=== PATIENT | male | born 1940 | race Caucasian/White ===

== ENCOUNTER 2017-02-28 23:22 | Emergency (ER) | payer MEDICARE, MEDICAID ==
[~2017-02-28] VITALS: Ht 167.6 cm; Wt 63.5 kg
[2017-02-28] MEDS ORDERED: LISI-603 PO (23:39)
[2017-02-28] MEDS ORDERED: CARI350T PO (23:39)
[2017-02-28] MEDS ORDERED: INHALER (23:39)
[2017-02-28] MEDS ORDERED: HYDR-548 PO (23:39)
[2017-02-28] MEDS ORDERED: OMEP40CA37 PO (23:39)
[2017-02-28] MEDS ORDERED: AZITHROMYCIN 250 MG TABLET PO ONE (23:45)
[2017-02-28] MEDS ORDERED: CEFTRIAXONE 500 MG VIAL IM ONE (23:45)
--- NOTE | 2017-02-28 23:59 | NUR ---
Patient discharged to home in stable conditon. Written and verbal after care instructions given. Patient verbalizes understanding of instructions.
[2017-03-01] MEDS ORDERED: AZITHROMYCIN 250 MG TABLET ONE (00:04)
[2017-03-01] MEDS ORDERED: LIDOCAINE HCL 1% 20 ML VIAL ONE (00:04)
[2017-03-01] MEDS ORDERED: CEFTRIAXONE 500 MG VIAL ONE (00:04)
== END 2017-03-01 | disposition home or self-care (01) ==
LOC: ER 23:26
DX: A64 Unspecified sexually transmitted disease (principal); I10 Essential (primary) hypertension; J44.9 Chronic obstructive pulmonary disease, unspecified; K21.9 Gastro-esophageal reflux disease without esophagitis
CPT/HCPCS: 96372; 99283; A4663; J0696; J3490; Q0144

== ENCOUNTER 2017-05-15 20:53 | Inpatient (IN) | payer MEDICARE, MEDICAID ==
[~2017-05-15] VITALS: Ht 177.8 cm; Wt 63.5 kg
[~2017-05-15 20:53] MED LIST: CARI350T PO; HYDR-548 PO; INHALER; LISI-603 PO; OMEP40CA37 PO
--- NOTE | 2017-05-15 21:58 | NUR ---
pt c/o eye pain and discharge x5 days
--- NOTE | 2017-05-15 22:05 | NUR ---
at bedside for MSE.
[2017-05-15] MEDS ORDERED: GUAIFENESIN/CODEINE 5 ML LIQUID UDC PO ONE (22:15)
[2017-05-15] MEDS ORDERED: CIPROFLOXACIN 0.3% OPHT DROP 2.5 ML BOTTLE OP ONE (22:15)
[2017-05-15] MEDS ORDERED: BENZONATATE 100 MG CAPSULE PO ONE (22:15)
[2017-05-15] MEDS ORDERED: ALBUTEROL SULFATE 2.5 MG/3 ML NEBU NEB ONE (22:15)
[2017-05-15] MEDS ORDERED: ALBUTEROL SULFATE 2.5 MG/3 ML NEBU ONE (22:44)
[2017-05-15] MEDS ORDERED: GUAIFENESIN/CODEINE 5 ML LIQUID UDC ONE (22:52)
[2017-05-15] MEDS ORDERED: CIPROFLOXACIN 0.3% OPHT DROP 2.5 ML BOTTLE ONE (22:52)
[2017-05-15] MEDS ORDERED: BENZONATATE 100 MG CAPSULE ONE (22:52)
[2017-05-15 23:15] LABS: BASOPHILS % (AUTO) 0.2 % (0.0-2.0); CARBON DIOXIDE 27 mmol/L (21-32); CHLORIDE 105 mmol/L (98-107); CREATININE 1.1 mg/dL (0.6-1.3); EOSINOPHILS # (AUTO) 0.1 K/uL (0.0-0.7); EOSINOPHILS % (AUTO) 1.8 % (0.0-7.0); GLUCOSE 122 mg/dL (74-106); HEMOGLOBIN 11.8 g/dL (12.5-16.3); LYMPHOCYTES # (AUTO) 1.3 K/uL (20.0-40.0); LYMPHOCYTES % (AUTO) 21.5 % (20.5-51.5); MEAN CORPUSCULAR HEMOGLOBIN 30.4 uug (23.8-33.4); MEAN CORPUSCULAR HGB CONC 34 g/dL (32.5-36.3); MEAN CORPUSCULAR VOLUME 90.2 fL (73.0-96.2); MONOCYTES # (AUTO) 0.5 K/uL (2.0-10.0); MONOCYTES % (AUTO) 7.9 % (0.0-11.0); NEUTROPHILS % (AUTO) 68.6 % (38.5-71.5); PLATELET COUNT (AUTO) 202 K/uL (152-348); POTASSIUM 3.7 mmol/L (3.5-5.1); RED BLOOD CELL COUNT(AUTO) 3.88 MIL/uL (4.06-5.63); UREA NITROGEN, BLOOD 18 mg/dL (7-18); WHITE BLOOD COUNT (AUTO) 5.9 K/uL (3.6-10.2)
[2017-05-15 23:31] LABS: ALANINE AMINOTRANSFERASE 46 U/L (16-63); ALKALINE PHOSPHATASE 41 U/L (50-136); ASPARTATE AMINOTRANSFERASE 41 U/L (15-37); BILIRUBIN,TOTAL 0.4 mg/dL (0.2-1.0); TOTAL PROTEIN, SERUM 6.6 g/dL (6.4-8.2)
[2017-05-16] MEDS ORDERED: AZITHROMYCIN IV 500 MG in IV DEXTROSE 5% 250 ML IV ONE ×2
[2017-05-16] MEDS ORDERED: CEFTRIAXONE 1 G in IV DEXTROSE 5% 50 ML IV ONE ×2
[2017-05-16 00:15] LABS: BILIRUBIN,DIRECT 0.1 mg/dL (0.0-0.2)
[2017-05-16] MEDS ORDERED: AZITHROMYCIN 500 MG VIAL IV ONE (00:27)
[2017-05-16] MEDS ORDERED: CEFTRIAXONE 1 G VIAL ONE ×2 (00:27→06:07)
--- NOTE | 2017-05-16 02:00 | NUR ---
Report given to JUHI Waller
--- NOTE | 2017-05-16 02:01 | NUR ---
Pt. admitted to ARU, under care of [employer] Osiel/Benoit Belongs List completed
[2017-05-16 02:12] LABS: *BLOOD, URINE Trace-intact (NEGATIVE); *COLOR,URINE AMBER (YELLOW); *KETONES,URINE NEGATIVE (NEGATIVE); *PROTEIN,URINE 1+ (NEGATIVE); LEUKOCYTE ESTERASE ,URINE NEGATIVE (NEGATIVE); NITRITE, URINE NEGATIVE (NEGATIVE); UGLUCOSE NEGATIVE (NEGATIVE)
[2017-05-16 02:36] LABS: *BILIRUBIN,URIN NEGATIVE (NEGATIVE); *CLARITY,URINE HAZY (CLEAR)
[2017-05-16 02:38] LABS: BACTERIA,URINE NONE SEEN /HPF (NONE SEEN); CALCIUM OXALATE CRYSTALS,UR MANY /HPF (NONE SEEN); MUCUS,URINE MODERATE /LPF (0-FEW); RBC,URINE 0-3 /HPF (0-3); SQUAMOUS EPITHELIAL CELL,UR FEW /HPF (NONE SEEN); WBC,URINE 0-3 /HPF (0-3)
[2017-05-16] MEDS ORDERED: HYDROCODONE/APAP 5-325MG TABLET PO PRN (04:00)
[2017-05-16] MEDS ORDERED: ENOXAPARIN SODIUM 40 MG/0.4 ML DISP.SYRIN SQ SCH (04:00)
[2017-05-16] MEDS ORDERED: ZOLPIDEM 5 MG TABLET PO PRN (04:00)
[2017-05-16] MEDS ORDERED: CEFTRIAXONE 1 G in IV DEXTROSE 5% 50 ML IV SCH (04:00)
[2017-05-16] MEDS ORDERED: ONDANSETRON 4 MG/2 ML VIAL IV PRN (04:00)
[2017-05-16] MEDS ORDERED: ACETAMINOPHEN 325 MG TABLET PO PRN (04:00)
[2017-05-16] MEDS ORDERED: MAGNESIUM HYDROXIDE 30 ML LIQUID UDC PO PRN (04:00)
--- NOTE | 2017-05-16 04:15 | NUR ---
Patient arrived in the unit admitted for Med Surg overflow via wheelchair. AAO x4. No acute distress noted. No c/o pain or discomfort. Patient was hungry and was given a sandwich. Oriented patient to unit and equipment. Pertinent assessment done. Non- productive cough noted. Belonging's done. Safety measures maintained. Call light and personal belongings within reach. Waiting for medications to arrive in the unit. Will continue to monitor patient.
[2017-05-16] MEDS ORDERED: ENOXAPARIN SODIUM 40 MG/0.4 ML DISP.SYRIN SQ ONE (05:54)
[2017-05-16 06:24] VITALS: BP 150/87
--- NOTE | 2017-05-16 06:48 | NUR ---
Ciprofloxacin eye drop not available at this time. Will endorse to day shift RN.
[2017-05-16 08:03] VITALS: BP 111/70
[2017-05-16] MEDS: AZITHROMYCIN IV 500 MG in IV DEXTROSE 5% 250 ML IV SCH (10:26)
[2017-05-16] MEDS: IPRATROPIUM BROMIDE 0.5 MG/2.5 ML NEBU NEB PRN ×2 (10:39→18:25)
[2017-05-16] MEDS: ALBUTEROL SULFATE 1.25 MG/3 ML NEBU NEB PRN ×2 (10:39→18:25)
[2017-05-16] MEDS: CIPROFLOXACIN 0.3% OPHT DROP 2.5 ML BOTTLE EACHEYE SCH ×3 (12:00→23:16)
--- NOTE | 2017-05-16 17:55 | NUR ---
Patient is awake and alert, not in acute distress. Patient is currently on IV antibiotic therapy for pneumonia, with no adverse effects noted, he also has antibiotic eye drops, with no adverse effects noted. Encouraged patient to cough and deep breath, also provided with good eye care after instillation of eye drops, kept comfortable. Needs attended promptly, call light in reach.
--- NOTE | 2017-05-16 19:41 | NUR ---
Pt resting comfortably in bed. AAO x4. Dr. Martel at bedside and talking to the patient. No acute distress noted. No c/o pain or discomfort. Safety measures maintained. Call light and personal belongings within reach. Will continue to monitor.
[2017-05-16 20:39] VITALS: BP 107/60
[2017-05-17] MEDS ORDERED: CEFTRIAXONE 1 G in IV DEXTROSE 5% 50 ML IV SCH ×2
[2017-05-17] MEDS: CIPROFLOXACIN 0.3% OPHT DROP 2.5 ML BOTTLE EACHEYE SCH ×4 (05:00→23:08)
--- NOTE | 2017-05-17 05:58 | NUR ---
Patient slept comfortably t/o the night. VSS. Meds given per MD's order. Pt compliant. All needs attended to promptly. Will endorse to day shift RN. Continue to monitor.
[2017-05-17 06:53] LABS: BASOPHILS % (AUTO) 0.5 % (0.0-2.0); EOSINOPHILS # (AUTO) 0.3 K/uL (0.0-0.7); EOSINOPHILS % (AUTO) 6.7 % (0.0-7.0); HEMATOCRIT 35.5 % (36.7-47.1); LYMPHOCYTES % (AUTO) 25.9 % (20.5-51.5); MEAN CORPUSCULAR HEMOGLOBIN 30.7 uug (23.8-33.4); MEAN CORPUSCULAR HGB CONC 34 g/dL (32.5-36.3); MEAN CORPUSCULAR VOLUME 90.9 fL (73.0-96.2); MONOCYTES # (AUTO) 0.4 K/uL (2.0-10.0); MONOCYTES % (AUTO) 9.9 % (0.0-11.0); NEUTROPHILS # (AUTO) 2.2 K/uL (1.8-8.9); PLATELET COUNT (AUTO) 203 K/uL (152-348); WHITE BLOOD COUNT (AUTO) 3.9 K/uL (3.6-10.2)
[2017-05-17 07:02] LABS: ALANINE AMINOTRANSFERASE 40 U/L (16-63); ALKALINE PHOSPHATASE 37 U/L (50-136); ASPARTATE AMINOTRANSFERASE 26 U/L (15-37); BILIRUBIN,TOTAL 0.2 mg/dL (0.2-1.0); CARBON DIOXIDE 28 mmol/L (21-32); CHLORIDE 109 mmol/L (98-107); CHOLESTEROL 89 mg/dL (<200); GLUCOSE 102 mg/dL (74-106); HDL CHOLESTEROL 48 mg/dL (40-60); MAGNESIUM 1.9 mg/dL (1.8-2.4); PHOSPHOROUS 2.9 mg/dL (2.5-4.9); POTASSIUM 4.1 mmol/L (3.5-5.1); TOTAL PROTEIN, SERUM 6.2 g/dL (6.4-8.2); TRIGLYCERIDES 38 MG/DL (30-150); UREA NITROGEN, BLOOD 15 mg/dL (7-18)
[2017-05-17 07:44] LABS: THYROID STIMULATING HORMONE 0.591 mIU/mL (0.358-3.740)
[2017-05-17 07:57] VITALS: BP 148/73
[2017-05-17] MEDS: CEFTRIAXONE 1 G in IV DEXTROSE 5% 50 ML IV SCH (09:21)
[2017-05-17] MEDS: ENOXAPARIN SODIUM 40 MG/0.4 ML DISP.SYRIN SQ SCH (09:32)
[2017-05-17] MEDS: AZITHROMYCIN IV 500 MG in IV DEXTROSE 5% 250 ML IV SCH (10:29)
[2017-05-17] MEDS: IPRATROPIUM BROMIDE 0.5 MG/2.5 ML NEBU NEB PRN ×2 (12:04→17:18)
[2017-05-17] MEDS: ALBUTEROL SULFATE 1.25 MG/3 ML NEBU NEB PRN ×2 (12:04→17:18)
--- NOTE | 2017-05-17 17:19 | NUR ---
Patient is awake and alert, not in acute distress. Re-established a new IV line on his Right hand today, denies pain. Patient is on dual IV antibiotic therapy for pneumonia, with no adverse effects noted, no SOB and no rashes at this time. He also receives antibiotic therapy for his eye infection, no discharge noted at this time he denies pain nor discomfort at this time, good eye care rendered. Encouraged to cough and deep breath, provided with breathing treatment as needed, kept comfortable, clean and dry. Needs attended promptly. Call light is placed in easy reach.
[2017-05-17 20:58] VITALS: BP 137/75
[2017-05-17 21:32] VITALS: BP 137/75
[2017-05-18] MEDS: CIPROFLOXACIN 0.3% OPHT DROP 2.5 ML BOTTLE EACHEYE SCH ×4 (06:29→23:55)
[2017-05-18] MEDS: PANTOPRAZOLE SODIUM 40 MG TABLET.DR PO SCH (06:29)
[2017-05-18 08:13] VITALS: BP 161/78
[2017-05-18] MEDS: CEFTRIAXONE 1 G in IV DEXTROSE 5% 50 ML IV SCH (08:54)
[2017-05-18] MEDS: ENOXAPARIN SODIUM 40 MG/0.4 ML DISP.SYRIN SQ SCH (08:55)
--- NOTE | 2017-05-18 09:34 | NUR ---
pt seen on rounding. pt stable. no signs of acute distress. pt continues to breathe room air. says he is not having any sob. iv site intact. pt given lovenox shot. iv antibiotics running. will continue to monitor.
[2017-05-18] MEDS: AZITHROMYCIN IV 500 MG in IV DEXTROSE 5% 250 ML IV SCH (09:47)
[2017-05-18] MEDS ORDERED: CARISOPRODOL 350 MG TABLET PO PRN (17:30)
[2017-05-18] MEDS: LISINOPRIL 20 MG TABLET PO SCH (17:42)
--- NOTE | 2017-05-18 19:27 | NUR ---
pt stable throughout the day. pt given ophtalmic medications. pt iv intact. no pain noted. pt to the restroom brp. no sob noted. will endorse to machine joint cutter nurse.
--- NOTE | 2017-05-18 19:30 | NUR ---
PT IN ROOM ALERT AWAKE IN NO ACUTE DISTRESS. BP NOTED 155/92 WITH C/O HEADACHE. DENIES ANY SOB OR CHEST PAIN AT THIS TIME. NO INCREASED COUGH OR CONGESTION NOTED. REQUESTING SANDWICH AND PAIN MEDICATION. CONTINUE TO MONITOR. CALL LIGHT PLACED WITHIN REACH.
[2017-05-18 20:46] VITALS: BP 155/92
--- NOTE | 2017-05-19 01:00 | NUR ---
PT NOTED WITH NO FURTHER C/O HEADACHES AT THIS TIME AND ABLE TO SLEEP. NO REACTION TO RECENT EYE DROPS ADMINISTERED 0000. CALL LIGHT WITHIN REACH. CONTINUE TO MONITOR.
--- NOTE | 2017-05-19 05:45 | NUR ---
PT TRANSFERRED TO ROOM 224 IN MEDSURG UNIT. NO ACUTE DISTRESS UPON TRANSFER. SHIFT REPORT GIVEN TO JUHI MASON.
--- NOTE | 2017-05-19 05:55 | NUR ---
RECEIVED PT BY A WHEELCHAIR COMING FROM MED SURG FIRST FLOOR. PT AWAKE, ALERT, ORIENTED.IV INTACT AND PATENT. BELONGING LIST DONE. CALL LIGHT WITHIN REACH.
[2017-05-19 06:18] VITALS: BP 124/67
[2017-05-19] MEDS: LISINOPRIL 20 MG TABLET PO SCH ×2 (06:27→17:04)
[2017-05-19] MEDS: PANTOPRAZOLE SODIUM 40 MG TABLET.DR PO SCH (06:27)
[2017-05-19] MEDS: CIPROFLOXACIN 0.3% OPHT DROP 2.5 ML BOTTLE EACHEYE SCH ×4 (06:29→17:04)
--- NOTE | 2017-05-19 06:30 | NUR ---
GAVE PT MEDICATION PRESCRIBED BY DOCTOR. VITAL SIGNS WITHIN NORMAL LIMIT. SAFETY AND COMFORT PROVIDED.
[2017-05-19] MEDS: CEFTRIAXONE 1 G in IV DEXTROSE 5% 50 ML IV SCH (08:50)
[2017-05-19] MEDS: ENOXAPARIN SODIUM 40 MG/0.4 ML DISP.SYRIN SQ SCH (08:57)
[2017-05-19] MEDS: AZITHROMYCIN IV 500 MG in IV DEXTROSE 5% 250 ML IV SCH (10:03)
[2017-05-19 11:44] VITALS: BP 111/58
[2017-05-19] MEDS ORDERED: HYDR-3326 PO (15:58)
[2017-05-19] MEDS ORDERED: CEFT1VIA15 IV (15:58)
[2017-05-19] MEDS ORDERED: MAGN400O6 PO (15:58)
[2017-05-19] MEDS ORDERED: IPRA0.2S6 NEB (15:58)
[2017-05-19] MEDS ORDERED: CARI350T27 PO (15:58)
[2017-05-19] MEDS ORDERED: ALBU1.25 NEB (15:58)
[2017-05-19] MEDS ORDERED: FLUT1DIS28 INH (15:58)
[2017-05-19] MEDS ORDERED: ACET325T53 PO (15:58)
[2017-05-19] MEDS ORDERED: LISI-603 PO (15:58)
[2017-05-19] MEDS ORDERED: OMEP20CA10 PO (15:58)
[2017-05-19] MEDS ORDERED: MULT1TAB73 PO (15:58)
[2017-05-19] MEDS ORDERED: TIOT18CA3 INH (15:58)
[2017-05-19] MEDS ORDERED: ACID1TAB4 PO (15:58)
[2017-05-19 16:02] VITALS: BP 132/70
[2017-05-19] MEDS ORDERED: AZIT250T PO (16:16)
[2017-05-19 17:04] VITALS: BP 132/70
--- NOTE | 2017-05-19 18:00 | NUR ---
Patient discharge to [facility] as ordered, awaiting for ambulance/transportation. Patient in no distress, no SOB, no cough, no c/o of discomfort. Pt slept intermittently throughout the day. Patient is cooperative, administered meds as ordered. Safety measures in place, call light within reach, bed alarm on. Will continue to monitor.
--- NOTE | 2017-05-19 18:35 | NUR ---
Patient refused to be transferred to [facility] as he had the impression the facility was located in [place]. warehouse and receiving supervisor discussed discharge orders. Patient finally agreed to be transferred.
--- NOTE | 2017-05-19 18:47 | NUR ---
Patient transported by ambulance/transportation to [facility]. IV removed, ID band removed, all personal belongings and loafers accounted for and given to the patient. Patient is alert, in no distress.
== END 2017-05-19 18:40 | DRG 177 ==
LOC: ER 20:54 → SA1 05-16 03:29 → MEDSURG1 05-16 05:06 → MED 05-19 05:40
PROVIDERS: ADMIT Internal Medicine; ATTEND Internal Medicine
DX: J15.6 Pneumonia due to other Gram-negative bacteria (principal); I50.41 Acute combined systolic (congestive) and diastolic (congestive) heart failure; E43 Unspecified severe protein-calorie malnutrition; J44.0 Chronic obstructive pulmonary disease with (acute) lower respiratory infection; J44.1 Chronic obstructive pulmonary disease with (acute) exacerbation; Z59.0 Homelessness; I11.0 Hypertensive heart disease with heart failure; K21.9 Gastro-esophageal reflux disease without esophagitis; H10.89 Other conjunctivitis; B96.89 Other specified bacterial agents as the cause of diseases classified elsewhere; Z68.20 Body mass index [BMI] 20.0-20.9, adult; R73.03 Prediabetes; F17.211 Nicotine dependence, cigarettes, in remission; D53.9 Nutritional anemia, unspecified; M19.90 Unspecified osteoarthritis, unspecified site; S33.1 Subluxation and dislocation of lumbar vertebra; X58.XXXD Exposure to other specified factors, subsequent encounter; M20.42 Other hammer toe(s) (acquired), left foot; M51.16 Intervertebral disc disorders with radiculopathy, lumbar region
CPT/HCPCS: 36415; 70030-TC; 71045; 83605; 83735; 84100; 84443; 85025; 87040; 87086; 87400; 93005; 93307; 94640; A4663; J0456; J0696; J1650; J3590; J7050; J7060

== ENCOUNTER 2017-07-13 00:24 | Emergency (ER) | payer MEDICARE, OTHER ==
[~2017-07-13] VITALS: Ht 177.8 cm; Wt 68.0 kg
[~2017-07-13 00:24] MED LIST changes: +ACET325T53 PO; +ACID1TAB4 PO; +ALBU1.25 NEB; +AZIT250T PO; -CARI350T PO; +CARI350T27 PO; +CEFT1VIA15 IV; +FLUT1DIS28 INH; +HYDR-3326 PO; -HYDR-548 PO; -INHALER; +IPRA0.2S6 NEB; +MAGN400O6 PO; +MULT1TAB73 PO; +OMEP20CA10 PO; -OMEP40CA37 PO; +TIOT18CA3 INH
--- NOTE | 2017-07-13 01:30 | NUR ---
Patient discharged to home in stable conditon. Written and verbal after care instructions given. Patient verbalizes understanding of instructions. Patient reported reduced elbow pain upon discharge. Patient able to ambulate unassisted with steady gait. Patient left with all personal belongings.
[2017-07-13 03:24] VITALS: BP 142/83
== END 2017-07-13 01:30 | disposition home or self-care (01) ==
LOC: ER 00:27
DX: M25.521 Pain in right elbow (principal); I10 Essential (primary) hypertension; J44.9 Chronic obstructive pulmonary disease, unspecified; K21.9 Gastro-esophageal reflux disease without esophagitis; G89.29 Other chronic pain; Z79.2 Long term (current) use of antibiotics; Z79.51 Long term (current) use of inhaled steroids; Z79.891 Long term (current) use of opiate analgesic; Z79.899 Other long term (current) drug therapy
CPT/HCPCS: 73080; A4663

== ENCOUNTER 2019-04-21 18:42 | Emergency (ER) | END 2019-04-21 19:05 | disposition home or self-care (01) | DX: G89.29 Other chronic pain (principal); M79.675 Pain in left toe(s); I10 Essential (primary) hypertension; J44.9 Chronic obstructive pulmonary disease, unspecified; K21.9 Gastro-esophageal reflux disease without esophagitis; F17.200 Nicotine dependence, unspecified, uncomplicated; Z79.899 Other long term (current) drug therapy; Z79.2 Long term (current) use of antibiotics ==